=== PATIENT | male | born 1955 | race Caucasian/White ===

== ENCOUNTER 2016-12-14 19:09 | Emergency (ER) | payer MEDICARE ==
--- NOTE | ~2016-12-14 | CT71 ---
[facility] A Service of [facility] RADIOLOGY TEXT RESULTS PATIENT: JONATHON CARVALHO LOCATION: [facility] : 57 UNIT #: [id number] AGE: [address]: Yao Lu MD SEX: M ORDER DR: [id number] [address] [place], [place] [address] [id number] MR#: [id number] Acc #: [id number] NAME: JONATHON CARVALHO. : 1955 SEX: M STUDY DATE/TIME: 12/14/2016 20:07 UNIT: [facility] ROOM: STUDY DESCRIPTION: CT Head Wo Contrast Attending Physician: Yao Lu M.D. Ordering Physician: Yao Lu M.D. Primary Care Physician: Primary Care Physician No MEDICAL IMAGING REPORT This report is preliminary unless electronic signature is present EXAM CT head without contrast INDICATION Dizziness and lethargy beginning 2-3 hours ago. PROCEDURE Unenhanced CT of the head. This CT examination was performed with one or more of the following radiation dose reduction techniques: automatic exposure control, adjustment of mA and/or kV according to patient size, and iterative reconstruction. COMPARISON 05/24/2016. FINDINGS No acute hemorrhage, abnormal mass effect, extraaxial collection or hydrocephalus. No definitive evidence for an acute or early subacute large territory infarct. No calvarial fracture. Paranasal sinuses and mastoid air cells are clear. IMPRESSION No acute intracranial findings. Dictated by... Cale Borja M.D. THIS IS AN ELECTRONICALLY VERIFIED REPORT Cale Borja M.D. at 12/18/2016 7:05 AM EED/francis [facility] A Service of [facility] RADIOLOGY TEXT RESULTS PATIENT: JONATHON CARVALHO LOCATION: [facility] : 57 UNIT #: [id number] AGE: [address]: Yao Lu MD SEX: M ORDER DR: TD: 12/15/2016 08:33 JOB #: [id number] MEDICAL IMAGING REPORT Page 1 of 1 COPY
--- NOTE | ~2016-12-14 | EKG ---
PATIENT: JONATHON CARVALHO UNIT #: [id number] Ventricular Rate: 63 BPM Atrial Rate: 63 BPM P-R Interval: 174 ms QRS Duration: 94 ms Q-T Interval: 422 ms QTC Calculation(Bezet): 431 ms P Gillette: 41 degrees Calculated R Gillette: 41 degrees Calculated T Gillette: 37 degrees Diagnosis Line: Sinus rhythm with Premature atrial complexes Diagnosis Line: Otherwise normal ECG Diagnosis Line: When compared with ECG of 24-MAY-2016 19:07, Diagnosis Line: Premature atrial complexes are now Present Diagnosis Line: Confirmed by LEONIDAS العلي MD ([id number]) on 12/17/2016 Diagnosis Line: 9:42:07 AM INTERPRETING MD: ZOHRA DONOVAN
--- NOTE | ~2016-12-14 | CR72 ---
[facility] A Service of [facility] & [facility] RADIOLOGY TEXT RESULTS PATIENT: JONATHON CARVALHO LOCATION: [facility] : 57 UNIT #: [id number] AGE: [address]: Yao Lu MD SEX: M ORDER DR: [id number] [facility] [address] [place], [place] [address] [id number] MR#: [id number] Acc #: [id number] NAME: JONATHON CARVALHO. : 1955 SEX: M STUDY DATE/TIME: 12/14/2016 19:23 UNIT: [facility] ROOM: STUDY DESCRIPTION: CR Chest Single View Portable Attending Physician: Yao Lu M.D. Ordering Physician: Yao Lu M.D. Primary Care Physician: Primary Care Physician No MEDICAL IMAGING REPORT This report is preliminary unless electronic signature is present EXAM Portable chest, 12/14/2016 HISTORY Chest congestion and dyspnea for 2 days. Smoking history for 30 years, COPD. FINDINGS The heart is normal in size. The lungs are hyperinflated with emphysematous and fibrotic changes characteristic of COPD. There is an infiltrate in the left lower lobe characteristic of pneumonia. Lungs are otherwise clear. There are no pleural effusions. Old healed fracture deformity proximal left humerus with associated metal shrapnel fragments. IMPRESSION COPD with infiltrate left lower lobe characteristic of pneumonia. Dictated by... Ryder Hayward M.D. THIS IS AN ELECTRONICALLY VERIFIED REPORT Ryder Hayward M.D. at 12/15/2016 10:46 AM Melanie TD: 12/15/2016 08:23 JOB #: [id number] MEDICAL IMAGING REPORT Page 1 of 1 COPY
[~2016-12-14 19:09] MED LIST: ADVAIR 250-501 EACH IH; ALBUTEROL17 GM INH; CRESTOR10 MG PO; FISH OIL 1,0001 EACH PO; FLOMAX0.4 M1 PO; LORTAB 10/500 T1 TAB PO; MORPHINE SULFAT15 MG PO; NEURONTIN PO; XANAX2 MG PO
[2016-12-14 19:20] LABS: BASOPHIL# 0.1 X10e3 (0-0.3); BASOPHIL% 0.8 % (0-2.5); EOSINOPHIL# 0.3 X10e3 (0-0.7); EOSINOPHIL% 3.7 % (0.0-7.0); HEMOGLOBIN 13.4 gm/dL (13.0-16.0); LYMPHOCYTE# 2.1 X10e3 (1.0-3.5); LYMPHOCYTE% 28.9 % (17.0-45.0); MEAN CELL VOLUME 89.9 FL (83-96); MEAN CORPUSCULAR HEMOGLOBIN 30.1 PG (28-34); MEAN CORPUSCULAR HGB CONC 33.4 g/dL (30-36); MEAN PLATELET VOLUME 7.5 FL (6.5-11.5); MONOCYTE# 0.5 X10e3 (0-1.0); MONOCYTE% 6.6 % (3.0-12.0); NEUTROPHIL# 4.4 X10e3 (1.5-7.1); PLATELET COUNT 285 X10e3 (140-420); RED BLOOD COUNT 4.45 X10e (3.90-5.60); RED CELL DISTRIBUTION WIDTH 13.8 % (11.0-15.5); WHITE BLOOD COUNT 7.4 X10e3 (4.0-10.5)
[2016-12-14 19:20] LABS: ARTERIAL BLD GAS O2 SATURATION 88.3 % (90.0-100.0); ARTERIAL BLOOD GAS CARBOXY HB 6.6 %sat (0.0-9.0); ARTERIAL BLOOD GAS HCO3 29.3 mmol/L; ARTERIAL BLOOD GAS MET HB 1.2 %sat (0.0-2.0); ARTERIAL BLOOD GAS pH 7.336 (7.350-7.450)
[2016-12-14 19:21] LABS: ARTERIAL BLOOD GAS ALLEN TEST NORMAL; ARTERIAL BLOOD GAS ART SITE RIGHT RADIAL; ARTERIAL BLOOD GAS DELIVERY NASAL CANNULA; ARTERIAL BLOOD GAS PCO2 54.9 mmHg (35.0-45.0); ARTERIAL BLOOD GAS PO2 77.5 mmHg (80.0-100); ARTERIAL DRAW? YES
[2016-12-14 19:24] LABS: DIFF IND NO
[2016-12-14 19:28] LABS: POC - CKMB 1.2 ng/mL (0.0-7.9); POC - TROPONIN <0.05 ng/mL (<=0.05)
[2016-12-14 19:33] LABS: PARTIAL THROMBOPLASTIN TIME 28.3 SECONDS (23.5-31.3); PROTHROMBIN TIME (PATIENT) 10.4 SECONDS (9.6-11.5)
[2016-12-14 19:45] LABS: ACETAMINOPHEN 16 ug/mL; ALBUMIN SERUM 4.2 g/dL (3.5-5.0); ALKALINE PHOSPHATASE 70 U/L (32-92); ALT (SGPT) 11 U/L (10-40); AST (SGOT) 13 U/L (10-42); BILIRUBIN, DIRECT 0.1 mg/dL (0.0-0.2); BILIRUBIN,INDIRECT 0.3 mg/dL (0.0-0.9); BILIRUBIN,TOTAL 0.4 mg/dL (0.2-2.0); BLOOD UREA NITROGEN 18 mg/dL (9-23); BUN/CREATININE RATIO 13.84; CARBON DIOXIDE 31 mmol/L (22-31); CHLORIDE 105 mmol/L (100-111); CREATININE SERUM 1.3 mg/dL (0.6-1.4); GLOM FILT RATE Estimated 59.3 mL/min (>60); GLUCOSE FASTING 102 mg/dL (70-110); POTASSIUM 4.4 mmol/L (3.5-5.1); PROTEIN TOTAL SERUM 7.3 g/dL (6.0-8.3); SALICYLATE <4.0 mg/dL; SODIUM 141 mmol/L (135-145)
[2016-12-14 19:46] LABS: ALCOHOL BLOOD <5 mg/dL (0)
[2016-12-14 21:24] LABS: AMPHETAMINE NEG (NEG); BARBITURATES NEG (NEG); BENZODIAZEPINES POS (NEG); COCAINE NEG (NEG); MARIJUANA NEG (NEG); OPIATES POS (NEG); TRICYCLIC ANTIDEPRESSANTS NEG (NEG); U METHADONE POS (NEG)
[2016-12-14 21:25] LABS: URINE APPEARANCE CLEAR; URINE BILIRUBIN NEG (NEG); URINE BLOOD NEG (NEG); URINE COLOR YELLOW; URINE GLUCOSE NEG (NEG); URINE KETONE NEG (NEG); URINE LEUKOCYTE ESTERASE NEG (NEG); URINE NITRATE NEG (NEG); URINE PH 5.5 (5-8); URINE PROTEIN NEG (NEG); URINE SPECIFIC GRAVITY 1.026 (1.003-1.035)
[2016-12-14 21:27] LABS: URINE SOURCE CATH
[2016-12-14 21:28] LABS: CULTURE INDICATED? NO
[2016-12-14] MEDS ORDERED: ADVAIR 100-501 EAC1 INH (21:29)
[2016-12-14] MEDS ORDERED: CRESTOR10 MG PO (21:29)
[2016-12-14] MEDS ORDERED: ALBUTEROL17 GM INH (21:30)
[2016-12-14] MEDS ORDERED: PERCOCET10 PO (21:30)
== END 2016-12-14 22:46 | disposition home or self-care (01) ==
LOC: CED 19:09
PROVIDERS: Emergency Medicine
DX: J18.9 Pneumonia, unspecified organism (principal); J44.9 Chronic obstructive pulmonary disease, unspecified; F41.9 Anxiety disorder, unspecified; F17.200 Nicotine dependence, unspecified, uncomplicated; Z88.2 Allergy status to sulfonamides; Z88.8 Allergy status to other drugs, medicaments and biological substances; Z79.899 Other long term (current) drug therapy
CPT/HCPCS: 36415; 36600; 51701; 70450; 71010; 80048; 80076; 80307; 81003; 82553; 82803; 82947; 83605; 84484; 85025; 85610; 85730; 87040; 93005; 94640; 96365; 96367; 96375; 99284; G0480; J0456; J0696; J2310; J2930